=== PATIENT | male | born 1975 | race Caucasian/White ===

== ENCOUNTER 2023-05-28 06:38 | Day surgery (SDC) | payer BC ==
[2023-05-22 10:07] LABS: BASOPHILS % (AUTO) 0.5 % (0-1); EOSINOPHILS # (AUTO) 0.2 X10'3 (0-0.9); EOSINOPHILS % (AUTO) 2.6 % (0-6); MEAN CORPUSCULAR HGB CONC 35.5 g/dL (33.0-36.5); MEAN CORPUSCULAR VOLUME 95.9 FL (78-98); MEAN PLATELET VOLUME 8.1 FL (7.4-10.4); MONOCYTES # (AUTO) 0.7 X10'3 (0-0.9); NEUTROPHILS % (AUTO) 43.9 % (42-75); PRE OP HEMATOCRIT 44.6 % (42.0-52.0); PRE OP HEMOGLOBIN 15.8 g/dL (14.0-17.9); PRE OP PLATELET COUNT 189 X10'3 (140-440); PRE OP WHITE BLOOD COUNT 6.9 10'3 (4.8-10.8); RED BLOOD COUNT 4.65 X10'6 (4.70-6.10); RED CELL DISTRIBUTION WIDTH 12.9 % (11.5-14.5)
[2023-05-22 10:09] LABS: BILIRUBIN,URINE NEGATIVE (Neg); CLARITY,URINE CLEAR (Clear); COLOR,URINE YELLOW (Yellow); GLUCOSE, URINE NEGATIVE (Neg); KETONES,URINE NEGATIVE (Neg); LEUKOCYTE ESTERASE ,URINE NEGATIVE (Neg); NITRITES, URINE NEGATIVE (Neg); OCCULT BLOOD,URINE SMALL (Neg); PROTEIN,URINE NEGATIVE (Neg); UROBILINOGEN,URINE 0.2 E.U/dL (0.2-1.0)
[2023-05-22 10:22] LABS: UA COLLECTION TYPE CLN CATCH MIDSTREAM
[2023-05-22 10:30] LABS: BACTERIA,URINE FEW /HPF (Neg); SQUAMOUS EPITHELIAL CELL,UR NONE SEEN /LPF (FEW); WBC,URINE 0-4 /HPF (0-4)
[2023-05-22 11:20] LABS: ALKALINE PHOSPHATASE 93 IU/L (46-116); BLOOD UREA NITROGEN 16 MG/DL (7-18); BUN/CREATININE RATIO 13.9 (10.0-20.0); CALCIUM 9.1 MG/DL (8.5-10.1); CHLORIDE 103 MMOL/L (99-107); CREATININE 1.15 MG/DL (0.60-1.10); PRE OP ALT 70 U/L (30-65); PRE OP ANION GAP 6 (8-16); PRE OP AST 43 U/L (10-37); PRE OP BILIRUB, TOTAL 0.9 MG/DL (0.0-1.0); PRE OP GLUCOSE 114 MG/DL (70-104); PRE OP POTASSIUM 3.8 MMOL/L (3.4-5.1); PRE OP SODIUM 140 MMOL/L (135-145); TOTAL CARBON DIOXIDE 31.2 MMOL/L (24-32); eGFR 68 ML/MIN
[2023-05-28] VITALS (9 sets, daily range): BP systolic 94–127; BP diastolic 48–77; PULSE 55–68; RESP 11–23; TEMP 98.4; O2SAT 93–99
[~2023-05-28] VITALS: Ht 175.3 cm; Wt 114.8 kg
[~2023-05-28 06:38] MED LIST: DOCUMENT DATE & TIME OF BETA-BLOCKER PO ONE; NEBI5TAB12 PO; ZINC; [UNRECOGNIZED DRUG - OTHER]; [UNRECOGNIZED DRUG - OTHER]; cefazolin 2gm/D5W 100mL 100 ML IV ONE; famotidine 20mg tablet PO ONE; ringers solution, lacted 1,000 ML IV SCH
[2023-05-28] MEDS ORDERED: ondansetron/PF 4mg/2ml inj IV PRN ×2 (07:35→11:55)
[2023-05-28] MEDS ORDERED: ringers solution, lacted 1,000 ML IV SCH ×2 (07:35→11:55)
[2023-05-28] MEDS ORDERED: labetalol 20mg/4ml (5mg/ml) syringe IV PRN (07:35)
[2023-05-28] MEDS ORDERED: midazolam 1 mg/ML 2ml injection IV PRN (07:35)
[2023-05-28] MEDS ORDERED: HYDROmorphone/PF 0.2 MG/ML SYRINGE IV PRN ×4 (07:35→11:55)
[2023-05-28] MEDS ORDERED: fentaNYL/PF 50MCG/1 ML 2ML syringe IV PRN ×2 (07:35)
[2023-05-28] MEDS ORDERED: hydrALAZINE 20mg/ml inj. IV PRN (07:35)
[2023-05-28] MEDS ORDERED: sevoflurane 250ml liquid IH ONE (10:38)
[2023-05-28] MEDS ORDERED: midazolam 1 mg/ML 2ml injection ONE (10:39)
[2023-05-28] MEDS ORDERED: fentaNYL /PF 50mcg/ml 5ml ampule ONE (10:40)
[2023-05-28] MEDS ORDERED: BUPIVAcaine 2.5mg/ml inj 50ml vial (contains preservative) ONE (10:53)
[2023-05-28] MEDS ORDERED: propofol inj 20 ML IV ONE (11:14)
[2023-05-28] MEDS ORDERED: acetaminophen 1,000mg/100ml IV 100 ML IV ONE (11:14)
[2023-05-28] MEDS ORDERED: dexamethasone sod phosphate 4mg/ml inj. ONE (11:15)
[2023-05-28] MEDS ORDERED: rocuronium 10mg/ml inj IV ONE (11:15)
[2023-05-28] MEDS ORDERED: ketorolac trometh. 30mg/ml inj. ONE (11:15)
[2023-05-28] MEDS ORDERED: LIDOcaine 2% (20mg/ml) 5ml vial ONE (11:15)
[2023-05-28] MEDS ORDERED: ondansetron/PF 4mg/2ml inj ONE (11:15)
[2023-05-28] MEDS ORDERED: BUPIVAcaine/PF 2.5 mg/ml (0.25%) 30ml vial IJ ONE (11:23)
[2023-05-28] MEDS ORDERED: hydrALAZINE 20mg/ml inj. IV ONE (11:32)
[2023-05-28] MEDS ORDERED: glycopyrrolate 0.2mg/ml inj ONE (11:40)
[2023-05-28] MEDS ORDERED: neostigmine methylsulfate 1 MG/ML 10ml vial ONE (11:40)
[2023-05-28] MEDS ORDERED: proCHLORperazine 10 MG/2 ml inj IV PRN (11:55)
[2023-05-28] MEDS ORDERED: meperidine/PF 25mg/ml syringe IV PRN ×3 (11:55)
[2023-05-28] MEDS ORDERED: enalaprilat dihydrate 2.5mg/2ml vial IV PRN (11:55)
[2023-05-28] MEDS ORDERED: HYDROcodone/acetaminophen 10/325mg tab PO ONE (12:45)
== END 2023-05-28 13:04 | disposition home or self-care (01) ==
LOC: PAS 06:38
PROVIDERS: ATTEND Surgery
DX: K42.9 Umbilical hernia without obstruction or gangrene (principal); I10 Essential (primary) hypertension; E66.9 Obesity, unspecified; G47.33 Obstructive sleep apnea (adult) (pediatric); I25.2 Old myocardial infarction; I20.9 Angina pectoris, unspecified; Z79.899 Other long term (current) drug therapy; Z68.37 Body mass index [BMI] 37.0-37.9, adult; Z88.5 Allergy status to narcotic agent
CPT/HCPCS: 36415; 49593; 80053; 81001; 82948; 85025; 93005; C1781; J0131; J0360; J0690; J1100; J1170; J1885; J2175; J2250; J2405; J2704; J2710; J3010; J3490; J7030; J7120; Z7506; Z7508; Z7512; A4215; A4615; A4618; A7000